=== PATIENT | female | born 1985 | race Caucasian/White ===

== ENCOUNTER 2023-11-30 02:19 | Emergency (ER) | payer OTHER ==
[2023-11-30 02:46] VITALS: PULSE 78; RESP 16; TEMP 97.3; O2SAT 100
[2023-11-30 03:16] LABS: Appearance Turbid (Clear); Bilirubin Negative (Negative); Blood Large (Negative); Glucose, Urine Negative (Negative); Ketones Negative (Negative); Leukocyte Esterase Large (Negative); Nitrite Negative (Negative); Protein,Urine Dip 100 (Negative); Specific Gravity 1.015 (1.005-1.030); Urobilinogen 0.2 mg/dL (0.2)
[2023-11-30 03:17] LABS: Bacteria Many /HPF (None Seen); Epithelial Cells Moderate /HPF (None Seen); Hyaline Casts NONE SEEN /LPF (0-2); RBC 21-50 /HPF (0-5); WBC >100 /HPF (0-5)
[2023-11-30 03:18] LABS: ADD URINE CULTURE? YES (NO); Mucus Many /HPF (NEGATIVE)
--- NOTE | 2023-11-30 03:39 | ERPHSYRPT ---
- History of Present Illness Time Seen by Provider: 11/30/23 03:33 Source: patient Exam Limitations: no limitations Patient Subjective Stated Complaint: pt states she thinks she has a uti, has been urinating frequently and has burning pain when urinating Triage Nursing Assessment: pt alert and oriented, answers questions approp. pt ambualtes into room with steady gait noted. respirations nonlabored. skin warm and dry. pt unable to urinate at this time. will try again later. Physician History: 38 years old female with 3 to 4 days history of increased urinary frequency, dysuria, sense of incomplete voiding and some suprapubic discomfort. Patient denies any flank pain nausea or vomiting. Does report some discoloration of urine. Reports having similar symptoms in the past with UTI. No fever or chills reported. Allergies/Adverse Reactions: No Known Drug Allergies Allergy (Verified 11/30/23 03:02) Hx Tetanus, Diphtheria Vaccination/Date Given: No Hx Influenza Vaccination/Date Given: No Hx Pneumococcal Vaccination/Date Given: No Travel Risk - International Travel Have you traveled outside of the country in past 3 weeks: No - Emerging Infectious Disease Are you exhibiting symptoms associated with any current EIDs: No - Review of Systems Constitutional: No Symptoms Ears, Nose, & Throat: No Symptoms Respiratory: No Symptoms Cardiac: No Symptoms Abdominal/Gastrointestinal: No Symptoms Genitourinary Symptoms: Dysuria, Frequency, No Flank Pain Musculoskeletal: No Symptoms Skin: No Symptoms Neurological: No Symptoms Endocrine: No Symptoms - Past Medical History Pertinent Past Medical History: No - Past Surgical History Past Surgical History: No - Female History Hx Last Menstrual Period: mid last month Hx Now: No - Social History Smoking Status: Current every day smoker How long have you smoked: yrs Exposure to second hand smoke: No Drug Use: none - Social Determinants of Health Will the patient participate in the screening: Yes Do you worry about a steady place to live?: No Do you have any problems with any of the following?: No known problems In the past 12 months,have you had to go without utilities?: Yes Transportation Issues: No Has anyone in your support network made you feel unsafe?: No Have you or anyone in your house had to go without enough: No - Nursing Vital Signs Nursing Vital Signs: Initial Vital Signs Temperature 97.3 F 11/30/23 02:24 Pulse Rate 78 11/30/23 02:24 Respiratory Rate 16 11/30/23 02:24 Blood Pressure 155/100 11/30/23 02:24 O2 Sat by Pulse Oximetry 100 11/30/23 02:24 Pain Scale Pain Intensity 5 - Physical Exam General Appearance: no apparent distress Eye Exam: PERRL/EOMI Neck Exam: normal inspection, full range of motion Respiratory Exam: normal breath sounds, lungs clear Cardiovascular Exam: regular rate/rhythm, normal heart sounds Gastrointestinal/Abdomen Exam: soft, normal bowel sounds, No tenderness Back Exam: No CVA tenderness Neurologic Exam: alert, oriented x 3, cooperative Skin Exam: normal color SpO2 Interpretation: normal SpO2: 100 O2 Delivery: Room Air Ordered Tests: Active Orders 24 hr Category Date Time Status ACO SDOH Referral ONCE Cons 11/30/23 02:47 Active CULTURE,URINE Stat Lab 11/30/23 02:50 Received UA W/RFX UR CULTURE Stat Lab 11/30/23 02:50 Completed Lab/Rad Data: Laboratory Results 11/30/23 Range/Units 02:50 Urine Color Yellow (Yellow) Urine Appearance Turbid A (Clear) Urine pH 6.0 (4.6-8.0) Ur Specific Walker 1.015 (1.005-1.030) Urine Protein 100 A (Negative) Urine Glucose (UA) Negative (Negative) mg/dL Urine Ketones Negative (Negative) Urine Blood Large A (Negative) Urine Nitrite Negative (Negative) Urine Bilirubin Negative (Negative) Urine Urobilinogen 0.2 (0.2) mg/dL Ur Leukocyte Esterase Large A (Negative) U Hyaline Cast (Auto) NONE SEEN (0-2) /LPF Urine Microscopic RBC 21-50 A (0-5) /HPF Urine Microscopic WBC >100 A (0-5) /HPF Ur Epithelial Cells Moderate A (None Seen) /HPF Urine Bacteria Many A (None Seen) /HPF Urine Mucus Many A (NEGATIVE) /HPF Urine Culture Reflexed YES (NO) - Progress Progress: unchanged Air Movement: good Progress Note: 11/30/23 03:37 38 years old female was evaluated in the ER for UTI symptoms for the last few days. Patient does not have any flank tenderness. Minimal suprapubic discomfort but no tenderness. Urinalysis is consistent with UTI. Started on Keflex. Recommended Tylenol ibuprofen as needed and outpatient follow-up. Discussed signs symptoms of worsening needing return to ER which she seems understanding. Stable for discharge. Blood Culture(s) Obtained: No Antibiotics given: Yes Counseled pt/family regarding: lab results, diagnosis, need for follow-up Medical Desision Making - Diagnostic Testing Diagnostic test were ordered, analyzed, and reviewed by me: Yes Radiological Interpretation: Reviewed by me - Risk of complications The pt has a mod risk of morbidity or mortality based on: Need for prescription drug management - Departure Departure Disposition: Home Clinical Impression: Acute UTI (urinary tract infection) Condition: Stable Critical Care Time: No Referrals: FARZAD KRUGER [Primary Care Provider] - Follow up with PCP 1 day Instructions: Urinary Tract Infection, Adult (DC) Additional Instructions: Drink plenty of fluids. Take Tylenol/ibuprofen as needed. Follow-up with primary care for reevaluation. Return to ER for worsening of UTI symptoms or if develop flank pain/intractable nausea vomiting/fever chills etc. Prescriptions: Cephalexin Mh 500 mg [Keflex 500 mg] 500 mg PO TID #21 cap
[2023-11-30] MEDS: KEFLEX 500 MG PO ONE (03:45)
[2023-11-30] MEDS ORDERED: KEFLEX 500 MG ONE (03:45)
[2023-11-30 04:00] VITALS: BP 133/79
[2023-11-30 04:01] LABS: HCG URINE TEST NEGATIVE (NEGATIVE)
== END 2023-11-30 04:07 | disposition home or self-care (01) ==
LOC: ED 02:19
DX: N39.0 Urinary tract infection, site not specified (principal); R30.0 Dysuria; R35.0 Frequency of micturition; R10.2 Pelvic and perineal pain; Z79.899 Other long term (current) drug therapy; Z72.0 Tobacco use; Z59.12 Inadequate housing utilities
CPT/HCPCS: 81001; 81025; 87077; 87086; 87186; 99282; A9270-GY